=== PATIENT | male | born 1990 | race African-American/Black ===

== ENCOUNTER 2017-02-15 19:24 | Emergency (ER) | payer OTHER ==
[~2017-02-15] VITALS: Ht 177.8 cm; Wt 74.8 kg
[~2017-02-15 19:24] MED LIST: NOHOMEMEDICATIONS
[2017-02-15 19:40] VITALS: BP 146/85
[2017-02-15] MEDS ORDERED: MIRALAX17 GM PO (19:56)
[2017-02-15] MEDS ORDERED: PROCTOFOAM-HC F10 GM RC (19:56)
[2017-02-15] MEDS ORDERED: LIDOCAINE 22 %/30 GM MM (19:56)
== END 2017-02-15 20:08 | disposition home or self-care (01) ==
LOC: ER 19:24
DX: K64.9 Unspecified hemorrhoids (principal)

== ENCOUNTER 2017-12-13 21:33 | Emergency (ER) | payer OTHER ==
[~2017-12-13] VITALS: Ht 177.8 cm; Wt 77.1 kg
[~2017-12-13 21:33] MED LIST changes: +LIDOCAINE 22 %/30 GM MM; +MIRALAX17 GM PO; +PROCTOFOAM-HC F10 GM RC
[2017-12-13 22:00] VITALS: BP 135/87
[2017-12-13] MEDS ORDERED: HYDROCODONE-AP1 EAC6 PO (22:24)
[2017-12-13] MEDS ORDERED: CIPROFLOXIN HC2.5 M1 OPHTHALMIC (22:24)
== END 2017-12-13 22:40 | disposition home or self-care (01) ==
LOC: ER 21:33
DX: S05.02XA Injury of conjunctiva and corneal abrasion without foreign body, left eye, initial encounter (principal); X58.XXXA Exposure to other specified factors, initial encounter; Y93.89 Activity, other specified; Y92.89 Other specified places as the place of occurrence of the external cause; Y99.8 Other external cause status

== ENCOUNTER 2018-07-13 15:10 | Emergency (ER) | payer OTHER ==
[~2018-07-13] VITALS: Ht 177.8 cm; Wt 68.0 kg
[~2018-07-13 15:10] MED LIST changes: +CIPROFLOXIN HC2.5 M1 OPHTHALMIC; +HYDROCODONE-AP1 EAC6 PO
[2018-07-13] MEDS ORDERED: COLACE100 MG PO (15:52)
== END 2018-07-13 16:06 | disposition home or self-care (01) ==
LOC: ER 15:10
DX: K64.4 Residual hemorrhoidal skin tags (principal)

== ENCOUNTER 2018-12-10 08:52 | Emergency (ER) | payer OTHER ==
[~2018-12-10] VITALS: Ht 177.8 cm; Wt 77.1 kg
[~2018-12-10 08:52] MED LIST changes: +COLACE100 MG PO
[2018-12-10] MEDS ORDERED: VALIUM5 MG PO (10:34)
[2018-12-10] MEDS ORDERED: MOBIC15 MG PO (10:34)
[2018-12-10 10:51] VITALS: BP 116/57
== END 2018-12-10 10:53 | disposition home or self-care (01) ==
LOC: ER 08:52
DX: S39.012A Strain of muscle, fascia and tendon of lower back, initial encounter (principal); S29.012A Strain of muscle and tendon of back wall of thorax, initial encounter; V89.2XXA Person injured in unspecified motor-vehicle accident, traffic, initial encounter; Y93.89 Activity, other specified; Y92.89 Other specified places as the place of occurrence of the external cause; Y99.8 Other external cause status

== ENCOUNTER 2018-12-22 10:17 | Emergency (ER) | payer OTHER ==
[~2018-12-22] VITALS: Ht 177.8 cm; Wt 74.8 kg
[~2018-12-22 10:17] MED LIST changes: +MOBIC15 MG PO; +VALIUM5 MG PO
[2018-12-22] MEDS ORDERED: MIRALAX17 GM PO (10:47)
[2018-12-22 10:54] VITALS: BP 134/50
--- NOTE | 2018-12-23 08:21 | EKG ---
[place] [address] [address] [facility] [address] ELECTROCARDIOGRAM REPORT Name: KIRSTYTONI III Room [facility]: [facility]TER[facility] [id number] ������������������ Admission: 12/22/18 ������������������ Attend Phys: Discharge: 12/22/18 ������������������ Date of : 89 Report #: [id number] ����������������������������������������������������������������� [id number] THIS REPORT FOR: //name// [facility] ED Test Date: 2018-12-22 Test Time: 10:28:23 Pat Name: TONI LOFTON Department: Room: Gender: M Director Style: OLIVIA : 1990 Requested By: Arin Crowley Order Number: [id number] MD: Sheldon Alvarez Measurements Intervals [place] Rate: 56 P: 63 CA: 176 QRS: 80 QRSD: 91 T: 51 QT: 408 QTc: 394 Interpretive Statements Sinus rhythm ST elev, probable normal early repol pattern Baseline wander in lead(s) V1 No previous ECG available for comparison Electronically Signed On 12-23-2018 8:21:44 CDT by Sheldon Alvarez [email or web address] ��������������������������������������������� <ELECTRONICALLY SIGNED> ���������������������������������������� By: Sheldon Alvarez MD ��������������������������������������������� 12/23/18 0821 D: [id number] Sheldon Alvarez MD /KRISTI
== END 2018-12-22 10:55 | disposition home or self-care (01) ==
LOC: ER 10:17
DX: K59.00 Constipation, unspecified (principal); G47.9 Sleep disorder, unspecified; F41.9 Anxiety disorder, unspecified

== ENCOUNTER 2019-01-07 03:40 | Emergency (ER) | payer OTHER ==
[~2019-01-07] VITALS: Ht 177.8 cm; Wt 68.0 kg
[2019-01-07] MEDS ORDERED: ANUSOL-HC25 MG RECTAL (03:50)
[2019-01-07] MEDS ORDERED: COLACE100 MG PO (03:59)
[2019-01-07 05:09] VITALS: BP 103/46
== END 2019-01-07 05:12 | disposition home or self-care (01) ==
LOC: ER 03:40
DX: K64.4 Residual hemorrhoidal skin tags (principal)

== ENCOUNTER 2019-01-29 05:09 | Emergency (ER) | payer OTHER ==
[~2019-01-29] VITALS: Ht 177.8 cm; Wt 70.3 kg
[~2019-01-29 05:09] MED LIST changes: +ANUSOL-HC25 MG RECTAL
[2019-01-29] MEDS ORDERED: NORCO 5-325 TA1 EACH PO (05:16)
[2019-01-29 06:39] LABS: ABSOLUTE NEUTROPHILS 3.8 thou/uL (1.4-8.2); BASOPHILS 0.8 % (0.0-2.0); HEMATOCRIT 40.7 % (42.0-52.0); HEMOGLOBIN 13.9 gm/dL (14.0-18.0); LYMPHOCYTES 27.9 % (24.0-44.0); MCH 25.5 pg (26.0-34.0); MCHC 34.2 g/dL (28.0-37.0); MCV 74.5 fL (80.0-100.0); MONOCYTES 9.4 % (1.0-8.0); PLATELET COUNT 259 thou/uL (150-400); POLYS 60.9 % (36.0-66.0); RBC 5.46 mil/uL (4.50-6.00); RDW 14.9 % (10.5-14.5); WBC 6.2 thou/uL (4.0-11.0)
[2019-01-29 06:57] LABS: CALCIUM 9.7 mg/dL (8.5-10.1); CREATININE 1.2 mg/dL (0.7-1.3); POTASSIUM 3.4 mmol/L (3.5-5.1)
[2019-01-29] MEDS ORDERED: KEFLEX500 M1 PO (07:49)
[2019-01-29 07:53] VITALS: BP 128/81
== END 2019-01-29 07:54 | disposition home or self-care (01) ==
LOC: ER 05:09
PROVIDERS: Emergency Medicine
DX: K62.89 Other specified diseases of anus and rectum (principal); K64.9 Unspecified hemorrhoids